=== PATIENT | female | born 1950 | race Caucasian/White ===

== ENCOUNTER 2019-10-17 11:36 | Emergency (ER) | payer MEDICARE, OTHER, SELFPAY ==
[2019-10-17 11:45] VITALS: BP 122/62; PULSE 104; RESP 14; TEMP 36.8; O2SAT 97
--- NOTE | 2019-10-17 11:59 | ED.GENADULT ---
HPI - General Adult General Chief complaint: Ear Stated complaint: left ear pain Time Seen by Provider: 10/17/19 11:59 Source: patient and RN notes reviewed Mode of arrival: ambulatory Limitations: no limitations History of Present Illness HPI narrative: 69-year-old female presents with complaints of left ear pain, itching, and drainage for the past 3-4 days. Denies swimming but says she believes got water into ear while showering 2 days prior to ear pain. Denies trouble hearing. Denies URI symptoms, No high fevers or chills. Denies injury to the ear. No nasal drainage and congestion. Denies nausea, vomiting, tinnitus, and dizziness. The patient reports she have not been diagnosed with COVID-19. The patient reports she is not waiting for the results of a COVID-19 lab test. The patient reports she do not have fever, chills, weakness, fatigue, myalgia, or facial swelling. The patient reports she do not have a new or worsening cough or shortness of breath. Denies chest pain. The patient reports she do not have any rhinorrhea, congestion, sore throat, nausea, vomiting, abdominal pain, and diarrhea. Tolerating po intake well. Denies recent traveling. Denies concerns for COVID-19 or exposures been home since [id number] order except for essential household needs and return home. At this time, patient is not suspected of having COVID-19. Some parts of this dictation were generated by voice recognition software and may contain typographical and/or grammatical inaccuracies. Related Data Home Medications Medication Instructions Recorded Confirmed albuterol sulfate [ProAir HFA] 1 inh INHALATION BID 10/17/19 10/17/19 amitriptyline 25 mg PO HS 10/17/19 10/17/19 diclofenac sodium 75 mg PO BID 10/17/19 10/17/19 fluticasone propion-salmeterol 1 inh INHALATION Q12H 10/17/19 10/17/19 [Advair Diskus] gabapentin 100 mg PO TID 10/17/19 10/17/19 hydroxyzine HCl 25 mg PO Q6H PRN 10/17/19 10/17/19 methocarbamol 750 mg PO QID 10/17/19 10/17/19 paroxetine HCl 12.5 mg PO QAM 10/17/19 10/17/19 ropinirole 1 mg PO QID 10/17/19 10/17/19 Allergies Allergy/AdvReac Type Severity Reaction Status Date / Time No Known Allergies Allergy Verified 10/17/19 12:08 Review of Systems Review of Systems: Narrative: CONSTITUTIONAL: Denies fever, chills, sweats. EYES: Denies visual changes, redness, discharge. ENT: Denies rhinorrhea, congestion, sore throat otalgia. Complains of left ear pain, itching, and drainage. CARDIOVASCULAR: Denies chest pain, palpitations, edema. RESPIRATORY: Denies dyspnea, wheezing, cough. GASTROINTESTINAL: Denies abdominal pain, nausea, vomiting, diarrhea. GENITOURINARY: Denies dysuria, hematuria, abnormal discharge. SKIN: Denies rash or itching. MUSCULOSKELETAL: Denies acute back pain, joint pain, or myalgia. NEUROLOGIC: Denies numbness or focal weakness. PSYCHIATRIC: Denies anxiety or depression. All systems reviewed & are unremarkable except as noted in HPI and below PMFSH Past Medical History Medical History (Updated 10/17/19 @ 12:35 by ALEXEI Panad) Anxiety Arthritis Back pain with history of spinal surgery Carpal tunnel syndrome of right wrist Chronic back pain COPD (chronic obstructive pulmonary disease) Depression Neuropathy Psoriasis Restless leg syndrome Surgical History Surgical History (Updated 10/17/19 @ 12:35 by ALEXEI Panda) History of carpal tunnel surgery RT wrist History of hip surgery History of shoulder surgery bilateral History of spinal surgery Lumbar fusion Family History Family History (Updated 10/17/19 @ 12:10 by ALEXEI Panda) Father , Cirrhosis Alcohol abuse Mother , Cirrhosis Alcohol abuse Social History Social History (Updated 10/17/19 @ 12:10 by ALEXEI Panda) Years smoked: 35 Smoking status: Current every day smoker Tobacco type: cigarettes Alcohol intake: current Substance use: cur
== END 2019-10-17 12:15 | disposition home or self-care (01) ==
PROVIDERS: Emergency Provider Nurse Practitioner Family; PCP Family Medicine
DX: H60.332 Swimmer's ear, left ear (principal); F41.9 Anxiety disorder, unspecified; M19.90 Unspecified osteoarthritis, unspecified site; J44.9 Chronic obstructive pulmonary disease, unspecified; F32.9 Major depressive disorder, single episode, unspecified; G25.81 Restless legs syndrome; G62.9 Polyneuropathy, unspecified; Z98.1 Arthrodesis status; F17.210 Nicotine dependence, cigarettes, uncomplicated
CPT/HCPCS: 99213; G0463

== ENCOUNTER → 2020-09-26 06:36 | Outpatient (CLI) | payer MEDICARE, OTHER, SELFPAY ==
[2020-09-26 19:22] LABS: SARS-CoV-2 RNA PCR Negative
== END ==
PROVIDERS: PCP Family Medicine; Visit Provider Pain Medicine Pain Medicine
DX: Z01.812 Encounter for preprocedural laboratory examination (principal); Z20.822 Contact with and (suspected) exposure to COVID-19
CPT/HCPCS: C9803; U0003; U0005